=== PATIENT | male | born 1975 | race Caucasian/White ===

== ENCOUNTER 2017-11-26 14:05 | Emergency (ER) | payer OTHER ==
--- NOTE | 2017-11-26 14:53 | ER Document Report ---
ED Medical Screen (RME) - General Chief Complaint: Laceration Stated Complaint: HAND INJURY Time Seen by Provider: 11/26/17 14:50 Notes: Right hand laceration at the extensor surface just prior to arrival with a table saw. Able to wiggle his fingers. TRAVEL OUTSIDE OF THE [place] IN LAST 30 DAYS: No - Related Data Allergies/Adverse Reactions: No Known Allergies Allergy (Verified 11/26/17 14:44) Physical Exam - Vital signs Vitals: Temp Pulse Resp BP Pulse Ox 97.8 F 54 L 18 128/80 H 96 11/26/17 14:24 11/26/17 14:24 11/26/17 14:24 11/26/17 14:24 11/26/17 14:24 Course - Vital Signs Vital signs: Temp Pulse Resp BP Pulse Ox 97.8 F 54 L 18 128/80 H 96 11/26/17 14:24 11/26/17 14:24 11/26/17 14:24 11/26/17 14:24 11/26/17 14:24
--- NOTE | 2017-11-26 15:32 | RADIOLOGY REPORT (SQ) ---
EXAM DESCRIPTION: HAND RIGHT 2 VIEWS COMPLETED DATE/TIME: 11/26/2017 3:20 pm REASON FOR STUDY: injury COMPARISON: None. EXAM PARAMETERS: NUMBER OF VIEWS: Two view. TECHNIQUE: AP and lateral radiographic images acquired of the right hand. LIMITATIONS: None. FINDINGS: MINERALIZATION: Normal. BONES: No acute fracture or dislocation. Old fracture of the 5th metacarpal. No worrisome bone lesi ons. JOINTS: No effusions. SOFT TISSUES: No soft tissue swelling. No foreign body. OTHER: No other significant finding. IMPRESSION: OLD FRACTURE OF THE 5TH METACARPAL. NO ACUTE FINDINGS. TECHNICAL DOCUMENTATION: JOB ID: [id number] [employer]- All Rights Reserved Reading location - IP/workstation name: [email or web address]
[2017-11-26] MEDS ORDERED: LIDOCAINE 1% INJ-PF (10 MG/ML) 30 ML SDV INJ ONE (15:34)
[2017-11-26] MEDS ORDERED: LIDOCAINE 1% INJ (10 MG/ML) 10 ML MDV INJ ONE (15:49)
--- NOTE | 2017-11-26 16:25 | ER Document Report ---
Doctor's Note Notes: I personally and independently obtained patient history and examined the patient in conjunction with the APC and agree with the assessment, treatment plan and disposition of the patient as recorded by the APC, and have reviewed the APC's note. HISTORY OF PRESENT ILLNESS: Patient is a 42-year-old male that presents to the emergency department for chief complaint of right hand laceration from a saw. Patient states that this occurred accidentally earlier today. Denies any numbness or tingling in his fingers. ROS: Constitutional: Negative for fever. Cardiovascular: Negative for chest pain. Respiratory: Negative for shortness of breath. Gastrointestinal: Negative for vomiting or abdominal pain Musculoskeletal: Negative for arm, leg or back pain Skin: Negative for rash. Neurological: Negative for weakness or numbness. Unless otherwise stated in this report the patient's positive and negative responses for review of systems for constitutional, eyes, ENT, cardiovascular, respiratory, gastrointestinal, neurological, genitourinary, musculoskeletal, and integumentary systems and related systems to the presenting problem are either as stated in the HPI or were not pertinent or were negative for the symptoms and/or complaints related to the presenting medical problem. PHYSICAL EXAMINATION: Vital signs reviewed, nursing noted reviewed. GENERAL: Well-appearing, well-nourished and in no acute distress. HEAD: Atraumatic, normocephalic. EYES: Eyes appear normal, conjunctiva are normal. ENT: nares patent, oropharynx clear without exudates. Moist mucous membranes. NECK: Normal range of motion, supple without lymphadenopathy LUNGS: Breath sounds clear to auscultation bilaterally and equal. No wheezes rales or rhonchi. HEART: Regular rate and rhythm without murmurs ABDOMEN: Soft, nontender, normoactive bowel sounds. No rebound, guarding, or rigidity. No masses appreciated. EXTREMITIES: Right dorsal aspect of the hand demonstrates a 4 cm laceration, deep to the tendons, there does not appear to be a tendon laceration, but the tendon sheath may have been affected, patient has good range of motion in extension and flexion of all digits against resistance. NEUROLOGICAL: No focal neurological deficits. Moves all extremities spontaneously Motor and sensory grossly intact on exam. PSYCH: Normal mood, normal affect. SKIN: Warm, Dry, normal turgor, no rashes or lesions noted on exposed MEDICAL DECISION MAKING: Patient's laceration was evaluated, does not appear that the tendons are involved, will repair primarily, and have him follow-up with hand surgery, he is advised on laceration care, antibiotics, and what to return for suture removal. Please review detail APC documentation. *Note is created using voice recognition software and may contain spelling, syntax or grammatical errors.
--- NOTE | 2017-11-26 17:07 | ER Document Report ---
ED Hand/Wrist Injury - General Chief Complaint: Laceration Stated Complaint: HAND INJURY Time Seen by Provider: 11/26/17 14:50 Mode of Arrival: Ambulatory Information source: Patient Notes: Patient is a 42-year-old male comes emergency room complaining of right hand laceration. Patient states he was using a table saw when he had a tick back and caught his hand on the table saw somehow. Patient states he has been bleeding quite a lot since he had the injury. It is on top of his right hand and runs horizontal with the bone structures. Patient denies any loss of function of the hand. He is recently out of the [employer]. He only has a history of PTSD. No other medical problems no allergies. He is currently up-to -date on his tetanus shot. TRAVEL OUTSIDE OF THE [place] IN LAST 30 DAYS: No - HPI Injury to: Hand, Middle finger Onset: Just prior to arrival Where: Home Timing: Constant Quality of pain: Sharp, Throbbing Severity: Severe Pain Level: 4 Context: Laceration - Related Data Allergies/Adverse Reactions: No Known Allergies Allergy (Verified 11/26/17 14:44) Past Medical History - General Information source: Patient - Social History Smoking Status: Current Every Day Smoker Cigarette use (# per day): Yes Chew tobacco use (# tins/day): No Smoking Education Provided: Yes Frequency of alcohol use: None Drug Abuse: None Family History: Reviewed & Not Pertinent Patient has suicidal ideation: No Patient has homicidal ideation: No Renal/ Medical History: Denies: Hx Peritoneal Dialysis Review of Systems - Review of Systems Constitutional: No symptoms reported EENT: No symptoms reported Cardiovascular: No symptoms reported Respiratory: No symptoms reported Gastrointestinal: No symptoms reported Genitourinary: No symptoms reported Male Genitourinary: No symptoms reported Skin: Other - Laceration Hematologic/Lymphatic: No symptoms reported Neurological/Psychological: No symptoms reported -: Yes All other systems reviewed and negative Physical Exam - Vital signs Vitals: Temp Pulse Resp BP Pulse Ox 97.8 F 54 L 18 128/80 H 96 11/26/17 14:24 11/26/17 14:24 11/26/17 14:24 11/26/17 14:24 11/26/17 14:24 Interpretation: Bradycardic - Notes Notes: Patient is well-nourished well-developed male no apparent distress but uncomfortable appearing. - General General appearance: Alert In distress: None - Respiratory Respiratory status: No respiratory distress Chest status: Nontender Breath sounds: Normal. No: Rales, Rhonchi, Stridor, Wheezing Chest palpation: Normal - Cardiovascular Rhythm: Bradycardia Heart sounds: Normal auscultation Murmur: No - Extremities General upper extremity: Tender, Normal ROM, Normal strength, Normal temperature. No: Normal color Hand: Tender, Laceration, Other - Examination of patient's right hand shows her to be approximate 5 cm linear laceration that runs horizontally along with the metacarpals. It is between the fourth and third digits basis. Does not run center of the fingers. Further examination shows what appears to be a tendon sheath in the wound this is with a tourniquet it arm so we can see into a bloodless field. Manipulation of this sheath type material does not move the fingers in any directions. When pulled perpendicular to the bone the material looks like the sheath covering the tendons. It has no function as far as movement of the finger. On patient's finger exam he has total extension in total flexion on his own. There is no lag in this. The patient has opposition that is normal. And he has strength against resistance is normal. He has strength with the pinch on each finger. He has good pulses. And good cap refill in the nailbeds of the right hand.. No: Tendon deficit - Neurological Neuro grossly intact: Yes Cognition: Normal Orientation: AAOx4, Disoriented to events Abdullahi Coma Scale Eye Opening: Spontaneous [place] Coma Scale Verbal: Oriented Abdullahi Coma Scale Motor: Obeys Commands [place] Coma Scale Total: 15 Speech: Normal Additional motor exam normals: Equal hip hop performers - Skin Skin irregularity: Laceration, other - See description under hand Course - Re-evaluation Re-evalutation: 11/26/17 17:[address] Morteza Mota take a look at the wound with me. He believes that this may be just a neck of the main tendon. Patient has full function. We are going to go ahead and close it up and we are given a referral to Dr. Liv mishra as a backup. Patient understands this and will follow through. - Vital Signs Vital signs: Temp Pulse Resp BP Pulse Ox 97.8 F 54 L 18 128/80 H 96 11/26/17 14:24 11/26/17 14:24 11/26/17 14:24 11/26/17 14:24 11/26/17 14:24 Procedures - Laceration/Wound Repair Right Dorsal Hand Time completed: 16:30 Wound length (cm): 5 Wound's Depth, Shape: Into muscle, Linear Laceration pre-procedure: Sterile PPE donned, Betadine prep applied, Sterile drapes applied, Shur-Clens applied Anesthetic type: 1% Lidocaine Volume Anesthetic (mLs): 4 Wound explored: No foreign body removed Irrigated w/ Saline (mLs): 1,000 Wound Debrided: Minimal Wound Repaired With: Sutures Suture Size/Type: 4:0, Prolene Number of Sutures: 8 - For the sutures were horizontal mattress and 4 or simple interrupted. Layer Closure?: No Post-procedure wound care: Sterile dressing applied, Splint applied Post-procedure NV exam normal: Yes - Total intact Complications: No Notes: 11/26/17 17:14 Patient was placed in a half arm cockup splint to stop him from moving the hand around much. This was applied by the PCT and checked by myself and found to be in good position with good vascular flow to the nailbeds of the right hand. Discharge - Discharge Clinical Impression: Hand laceration Qualifiers: Encounter type: initial encounter Foreign body presence: without foreign body Laterality: right Qualified Code(s): S61.411A - Laceration without foreign body of right hand, initial encounter Condition: Stable Disposition: HOME, SELF-CARE Instructions: Antibiotic Ointment Protection ([facility]), Laceration Care ([facility]), Oral Narcotic Medication ([facility]), Prophylactic Antibiotic ([facility]), Soap Cleansing ( [facility]) Additional Instructions: Home and use the splint for the next 4-5 days. Change dressing starting tomorrow evening. Apply antibiotic cream to it. Take all antibiotics orally as well. As I have tried to tell you it is very important he follow-up with the hand specialist. Even though what I have done may appear to be the final therapy it needs it is still best to have the hand surgeon look at it. This way you are guaranteed to have full range of motion in that hand when you get to be older. Also please do not put too much stress on that hand until the sutures are removed. Should you have any concerns at this is not healing appropriately return to ER and let us look at it please. Prescriptions: Cephalexin Monohydrate [Keflex 500 mg Capsule] 500 mg PO Q6H 10 Days #40 capsule Hydrocodone/Acetaminophen [[place] 7.5-325 mg Tablet] 1 tab PO Q4 #12 tablet Forms: Elevated Blood Pressure Referrals: NATHAN KIMBLE DO [ACTIVE STAFF] - Follow up as needed
[2017-11-26 17:45] VITALS: BP 112/71
== END 2017-11-26 17:46 | disposition home or self-care (01) ==
LOC: ER 14:05
DX: S66.921A Laceration of unspecified muscle, fascia and tendon at wrist and hand level, right hand, initial encounter (principal); S61.411A Laceration without foreign body of right hand, initial encounter; W29.8XXA Contact with other powered hand tools and household machinery, initial encounter; Y93.89 Activity, other specified; Y92.009 Unspecified place in unspecified non-institutional (private) residence as the place of occurrence of the external cause; F17.210 Nicotine dependence, cigarettes, uncomplicated; R00.1 Bradycardia, unspecified
CPT/HCPCS: 99283; 73120; 12002; L3908